=== PATIENT | female | born 1965 | race Caucasian/White ===

== ENCOUNTER 2025-05-15 12:59 | Emergency (ER) | payer MEDICAID ==
[~2025-05-15] VITALS: Ht 152.4 cm; Wt 70.0 kg
[2025-05-15] MEDS ORDERED: OMEPRAZOLE20 MG PO (13:25)
[2025-05-15 14:28] LABS: BASOPHILS 0.5 % (0.1-1.2); EOSINOPHILS 2.5 % (0.7-5.8); LYMPHOCYTES 18.4 % (19.3-51.7); MCH 29.4 PG (25.6-32.2); MCHC 35.9 g/dL (32.2-35.5); MCV 82.0 fL (79.4-94.8); MONOCYTES 9.7 % (4.7-12.5); NEUTROPHILS 68.7 % (34.0-71.1); RBC 3.84 M/uL (3.93-5.22)
[2025-05-15 14:46] LABS: ALT (SGPT) 22.0 U/L (14-59); AST (SGOT) 18.0 U/L (15-37); GLOMERULAR FILTRATION RATE,EST 56.0 mL/min (>60); PROTEIN, TOTAL 7.3 g/dL (6.4-8.2); UREA NITROGEN 12.0 mg/dL (7-18)
[2025-05-15] MEDS ORDERED: SYNTHROID50 MCG PO (16:40)
[2025-05-15] MEDS ORDERED: HEParin SOD (PORCINE) 500 UNIT/5 ML ML IV ONE (17:00)
--- OUTSIDE RECORDS SUMMARY | 2025-05-15 17:12 | XMS ---
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 [place] VISIT COUNT (12 MO.) [address] [place] [address] [address] TOTAL 5 NOTE: Visits indicate total known visits. ED/UCC VISIT TRACKING (12 MO.) 05/15/2025 13:00 [facility] TYPE: Emergency COMPLAINT: - SHORTNESS OF BREATH [facility] DIAGNOSES: - Constipation, unspecified - Unspecified abdominal pain - Urinary tract infection, site not specified - Abdominal Pain - Constipation 10[facility]2024 15[facility] TYPE: Emergency DIAGNOSES: - Chest pain, unspecified - Unspecified abdominal pain - Abdominal Pain - Nausea 09/26/2024 03:21 [facility] Arias Bianchi STARR (Arias Bianchi) TYPE: Emergency DIAGNOSES: - Other acute postprocedural pain - port issue - Vascular Access Problem 06/22/2024 14:41 [facility] Arias Bianchi STARR (Arias Bianchi) TYPE: Emergency DIAGNOSES: - Abnormal uterine and vaginal bleeding, unspecified - Other specified noninflammatory disorders of cervix uteri - Polyp of corpus uteri - Postmenopausal bleeding - Abdominal Pain - Dizziness - Vaginal Bleeding INPATIENT VISIT TRACKING (12 MO.) No inpatient visits to display in this time frame [email or web address]
== END 2025-05-15 17:12 | disposition home or self-care (01) ==
LOC: ED 12:59
PROVIDERS: Emergency Medicine
DX: K59.00 Constipation, unspecified (principal); E03.9 Hypothyroidism, unspecified; Z88.5 Allergy status to narcotic agent; Z88.8 Allergy status to other drugs, medicaments and biological substances
CPT/HCPCS: 36415; 74177; 80053; 83735; 84443; 85025; 96374; 99284-25; Q9967